=== PATIENT | female | born 1940 | race Caucasian/White ===

== ENCOUNTER 2018-12-04 12:50 | Inpatient (IN) ==
[2018-12-04] MEDS ORDERED: AMIDATE ONE (13:08)
[2018-12-04] MEDS ORDERED: NS 1,000 ML IV ONE (13:20)
[2018-12-04] MEDS ORDERED: VANCOMYCIN 1 GM/NS 1 GM/250 ML IVPB IV ONE (13:21)
[2018-12-04] MEDS ORDERED: ZOSYN 3.375 GM in NS 50 ML IV ONE (13:21)
[2018-12-04] MEDS ORDERED: AMIDATE IV ONE (13:23)
[2018-12-04] MEDS ORDERED: ZEMURON IV ONE (13:24)
--- NOTE | 2018-12-04 13:28 | PROVIDER DOCUMENTATION ---
HPI-General Adult - General Chief Complaint: Altered Mental Status Stated Complaint: UNRESPONSIVE Time Seen by Provider: 12/04/18 12:53 Source: EMS Unable to obtain history due to:: altered Allergies/Adverse Reactions: Patient Allergies Allergy/AdvReac Type Severity Reaction Status Date / Time Unable to Assess Allergy Unverified 12/04/18 13:36 - History of Present Illness -Gen Adult Nature of Presenting Problems: Female of undetermined age, appears to be in her 60s-70s, found unresponsive by the insurance claims assistant after neighbors called, thinking the pt might be . She had last been seen by neighbors 5 days ago. When the insurance claims assistant arrived, the pt was noted to have a pulse and EMS was dispatched. The pt was subsequently transp orted here. She was non-verbal, not responsive to commands, with occasional blinking of the right eye. Location of Pain/Injury: reports: face (decubitus ulcer to left cheek) Review of Systems - Adult - REVIEW OF SYSTEMS - ADULT ROS:: unobtainable per condition Constitutional: reports: other (unobtainable per condition) Eyes: reports: other (unobtainable per condition) Ears, Nose, Mouth & Throat: reports: other (unobtainable per condition) Cardiovascular: reports: other (unobtainable per condition) Respiratory: reports: other (unobtainable per condition) Gastrointestinal: reports: other (unobtainable per condition) Genitourinary: reports: other (unobtainable per condition) Musculoskeletal: reports: other (unobtainable per condition) Integumentary: reports: other (unobtainable per condition) Neurological: reports: other (unobtainable per condition) Psychiatric: reports: other (unobtainable per condition) Past History - Adult - PAST MEDICAL HISTORY-ADULT Review of Records: reports: Nursing Assessment Review Physical Exam-General - PHYSICAL EXAM-ADULT Initial Vital Signs Reviewed: Yes - CONSTITUTIONAL General Appearance: obtunded - EYES Eyes: other (left pupil non-reactive, 2 mm; right pupil minimally reactive 2 mm) - HEAD, EARS, NOSE, MOUTH & THROAT HENMT: other (dry mucous membranes, dried, crusted sputum, thick secretions no marian). negative: normocephalic/atraumatic, moist mucous membranes - NECK Neck: supple - RESPIRATORY Respiratory: lungs clear - CARDIOVASCULAR Cardiovascular: regular rate, rhythm - GASTROINTESTINAL (ABDOMEN) Abdominal Exam: soft, other (bowel sounds hypoactive) - MUSCULOSKELETAL Back Exam: other (no obvious bony deformity noted) Extremity: other (no edema noted, various areas of brusing noted, area of ulceration noted on left knee) - SKIN Integumentary: decubitus (noted on left cheek, lateral and slightly distal to the left eye; some dependent edema noted about the left eye) - NEUROLOGIC Neurologic: other (doesn't respond to commands; occasional blinking of the left eye) - PSYCHIATRIC Psych/Mental Status: other (unresponsive) Progress - PLAN OF CARE/RESULTS Progress/Plan/Lab Results: Orders Category Date Time Status CHEST-1 VIEW [RAD] Stat Exams 12/04/18 13:[address] HEAD/C-SPINE W/O CONTRAST [CT] Stat Exams 12/04/18 13:[address] MAXILLOFACIAL(SINUS) W/O CO [CT] Stat Exams 12/04/18 13:20 Ordered PELVIS [RAD] Stat Exams 12/04/18 13:26 Ordered BLOOD CULTURE [BLDCUL] Stat Lab 12/04/18 13:22 Uncollected CBC WITH ELECTRONIC DIFF [HEME] Stat Lab 12/04/18 13:22 Uncollected CK TOTAL [CHEM] Stat Lab 12/04/18 13:22 Uncollected COMPREHENSIVE METABOLIC PANEL [CHEM] Stat Lab 12/04/18 13:22 Uncollected LACTATE, PLASMA [CHEM] Stat Lab 12/04/18 13:22 Uncollected PROTIME WITH INR [COAG] Stat Lab 12/04/18 13:22 Uncollected PTT [COAG] Stat Lab 12/04/18 13:22 Uncollected TROPONIN T Stat Lab 12/04/18 13:22 Uncollected 0.9% Sodium Chloride Inj [Ns] 1,000 ml Med 12/04/18 13:20 Active IV 999 mls/hr Etomidate [Amidate] Med 12/04/18 13:23 Once 20 mg IV NOW ONE Etomidate [Amidate] Med 12/04/18 13:08 Discontinued 40 mg .ROUTE .STK-MED ONE Piperacillin/Tazobactam [Zosyn] 3.375 gm Med 12/04/18 13:21 Active 0.9% Sodium Chloride Inj [Ns] 50 ml IV NOW Rocuronium Heber [Zemuron] Med 12/04/18 13:24 Once 50 mg IV NOW ONE Vancomycin 1 gm/Ns Med 12/04/18 13:21 Active 1 gm in 250 ml IV NOW Discussion with Cardiology and hospitalist. Pt to be admitted to ICU, Cardiology will consult. Spoke with family at bedside. Result Diagrams: 12/04/18 13:04 12/04/18 13:04 - REASSESSMENT Reassessment #1 Time Reassessed: 15:00 (significant electrolyte derangements, elevated troponin, decreased kidney function; pt will be admitted. No sign of bleeding on head CT. Family updated at bedside. ) - EKG 1 Time of EKG reading by physician:: 14:17 EKG Read and Signed by:: Heather Aquino EKG Interpretation (*Must complete 3 of following elements*): Abnormal Rate: 86 Rhythm: sinus [place]: left ST Wave: non-specific ST changes Comments: peaked T waves, biatrial enlargement, pulm disease pattern, prolonged QT Procedures - INTUBATION Time of Intubation: 13:11 Airway Evaluation: Copious Secretions Mallampati Class: 1 Intubation Method: orotracheal Equipment: ETT, Glidescope Tube Size (cm): 7.5 Pretreated with 100% Oxygen?: Yes Breath Sounds after Intubation: equal ETT Primary Tube Confirmation: Capnometry CO2 Change, Direct Visualization, Chest Rise and Fall, Tube placement verified on XRAY Intubation Complications: no complications Vent Settings: See Respiratory Therapy Notes Departure - Departure Date of Disposition Decision: 12/04/18 Time of Disposition Decision: 15:29 DIAGNOSIS: Hypernatremia, Elevated troponin Altered mental status Qualifiers: Coma depth: [place] coma 3-8 Disposition: ADMITTED INPATIENT 09 Certified Medical Emergency: Emergent Condition: Critical - Critical Care Note This patient required my direct & personal management of CC.: Yes Total Time (mins): 45 Critical Care Statement: This patient required my direct personal management to treat or rule out processes, the absence of which, could potentiallly result in sudden, clinically significant life or limb threatening deterioration. Attestation - Physician/ ASHWIN Attestation Patient care was provided by Advanced Practice Provider:: No The physician spent face to face time with patient:: Yes Advanced Practice Provider documentation review:: Supervising physician onsite and consulted in the evaluation and care of this patient. The physician did have a face to face encounter with the patient.
--- NOTE | 2018-12-04 13:33 | Diag Imaging Result Doc PS360 ---
CHEST-1 VIEW - 12/04/2018 INDICATION: trauma COMPARISON: None FINDINGS: There is an endotracheal tube in good position at about T5. The lungs are clear. Heart size is normal. No pneumothorax or pleural effusion. IMPRESSION: No acute disease. Electronically signed by Yoan Pineda 12/04/2018 1:31 PM
[2018-12-04 13:43] LABS: BASO# 0.03 X1000 (0.0-0.2); BASO% 0.2 % (0.0-0.8); HEMATOCRIT 47.8 % (37.0-47.0); HEMOGLOBIN 16.1 g/dL (12.0-16.0); IMM GRAN# 0.16 X1000 (0.0-0.04); IMM GRAN% 0.9 % (0.0-0.5); LYMPH% 3.8 % (20.5-51.1); MCHC 33.7 g/dL (33-37); MONO# 0.91 X1000 (0.11-0.59); MONO% 4.9 % (1.7-9.3); MPV 12.8 FL (7.4-10.4); NEUT# 16.73 X1000 (1.4-6.5); NEUT% 90.2 % (42.2-75.2); PLT 100 X1000 (130-400); RBC 5.37 XMIL (4.2-5.4); RDW 14.9 % (11.5-14.5); WBC 18.53 X1000 (4.8-10.8)
--- NOTE | 2018-12-04 13:47 | Diag Imaging Result Doc PS360 ---
PELVIS - 12/04/2018 INDICATION: trauma TECHNIQUE: One view COMPARISON: None FINDINGS: There is no fracture or dislocation. There is mild to moderate bilateral hip osteoarthritis. There is moderate degeneration of the sacroiliac joints. There are some mild degenerative calcifications of the iliac wings. IMPRESSION: No acute disease. Electronically signed by Yoan Pineda 12/04/2018 1:45 PM
[2018-12-04 14:08] LABS: INR 1.21; PROTIME 15.5 Seconds (11.0-16.0)
[2018-12-04 14:09] LABS: PTT 23.7 Seconds (22.3-41.8)
[2018-12-04 14:32] LABS: ALB/GLOB RATIO 1.1; ALBUMIN 3.9 g/dL (3.5-5.0); CALCIUM 9.8 mg/dL (8.8-10.2); CREATININE 4.5 mg/dL (0.5-0.9); POTASSIUM 4.3 mmol/L (3.5-5.1); TOTAL BILIRUBIN 1.73 mg/dL (0.20-1.00); TOTAL PROTEIN 7.3 g/dL (6.3-8.3)
--- NOTE | 2018-12-04 14:35 | Diag Imaging Result Doc PS360 ---
CT MAXILLOFACIAL(SINUS) W/O CO - 12/04/2018 INDICATION: Trauma TECHNIQUE: COMPARISON: None FINDINGS: There is an endotracheal tube. There is nasogastric tube at the left side of nose. This is actually coiled in the pharynx, but then does go down into the upper esophagus. No facial bone fracture. There are old side plates of the mandible, mainly at the symphysis and the the symphysis and the The sinuses, mastoids, and middle ears are clear. There is moderate left periorbital soft tissue swelling. Orbital contents are normal. IMPRESSION: 1. Left periorbital soft tissue swelling. No facial bone fractures. 2. The nasogastric tube is slightly coiled in the pharynx, but then does extend into the esophagus. Electronically signed by Yoan Pineda 12/04/2018 2:33 PM
--- NOTE | 2018-12-04 14:48 | Diag Imaging Result Doc PS360 ---
EXAM: CT HEAD/C-SPINE W/O CONTRAST INDICATION: trauma TECHNIQUE: This exam was performed using automated exposure control, adjustment of mA or kV according to patient size, and/or use of iterative reconstruction technique. COMPARISON: None. FINDINGS: Head: There is patchy low attenuation in the periventricular and subcortical white matter suggesting advanced microangiopathy. There is no definite acute infarct given the limited sensitivity of CT versus MRI. There is no discrete intracranial mass, mass effect, or intracranial hemorrhage. There is soft tissue edema involving the frontal and lateral aspect of the scalp on the left. The calvaria is intact. C-spine: There is moderate multilevel degenerative disc disease with loss of disc space height and small marginal osteophyte formation throughout the cervical spine. Otherwise, there is no discrete fracture, subluxation, or intrinsic osseous lesion. And ET tube is in place. The NG tube is coiled multiple times in the pharynx and proximal esophagus. IMPRESSION: 1.Advanced chronic appearing white matter changes but no evidence of acute intracranial pathology. 2.Scalp edema on the left as described. 3.Degenerative changes but no evidence of fracture or other definite acute C-spine injury. 4.Malpositioned NG tube that is coiled within the pharynx and upper esophagus. Electronically signed by Sandor Yao 12/04/2018 2:45 PM
[2018-12-04] MEDS ORDERED: NS 1,000 ML IV SCH ×2 (15:30→16:45)
[2018-12-04 15:34] LABS: CK INDEX 18.6 (0.0-2.5); CK-MB 119.2 ng/mL (0.0-5.0)
[2018-12-04 15:40] LABS: URINE SOURCE CATH
[2018-12-04 15:54] LABS: BILIRUBIN URINE SMALL (NEGATIVE); BLOOD URINE NEGATIVE (NEGATIVE); COLOR YELLOW; GLUCOSE URINE NEGATIVE (NEGATIVE); KETONE URINE NEGATIVE (NEGATIVE); LEUKOCYTES URINE NEGATIVE (NEGATIVE); NITRITE URINE NEGATIVE (NEGATIVE); PROTEIN URINE 50 mg/dL (NEGATIVE); SP GRAVITY URINE 1.018; TURBIDITY URINE CLEAR (CLEAR); UR EPITHELIAL CELLS <10 /HPF (<10); URINE BACTERIA NEGATIVE /HPF; URINE RBC <10 /HPF (<10); URINE WBC <10 /HPF (<10); UROBILINOGEN URINE 2 mg/dL (NORMAL)
--- NOTE | 2018-12-04 16:02 | CARDIOLOGY CONSULTATION ---
DATE: 12/04/2018 HISTORY OF PRESENT ILLNESS: Ms. Zenobia Hinds was found by neighbors to be unresponsive. In the oil bay technician and EMT were there. The patient was noted to have a pulse. She was intubated. She was brought to the emergency room, was intubated. History could not be obtained. From the chart, she has not been in this hospital before. Discussed with her neighbor. They had last seen her 4 or 5 days back. She was otherwise active, had been taking care of her home, and taking care of her pet as well. She was noted to be on the floor when EMT and the oil bay technician where there. She has a large left maxillary area laceration with eschar formation. In addition, on the knees she had similar eschar and laceration and she was noted to be on the floor. As far as the neighbor is concerned, she says that when they had last seen her she was healthy. History could not be obtained from the patient. PAST MEDICAL HISTORY: Hypertension, history of aortic insufficiency, [facility]. MEDICATIONS: We do not have the home medication list. ALLERGIES: Allergies could not be obtained but from our history, which we have in our office from 2008, she is allergic to penicillin. PHYSICAL EXAMINATION: General: Patient is intubated. Vital signs: Blood pressure was 160/85. Cardiovascular system: First and second heart sounds were heard. There was a soft systolic murmur. Respiratory System: Distant breath sounds. Abdomen: Soft. Central nervous system: Could not be assessed. Extremities: She had bilateral edema. She had lacerations on both knees. HEENT: In addition, she had orbital edema bilaterally. In addition, there was a large eschar on the left maxillary region. DIAGNOSTIC STUDIES: Electrocardiogram revealed normal sinus rhythm. T-waves were tall but there was no ST elevation. LABORATORY EXAMINATION: Revealed sodium 160, potassium 4.3, BUN 169, creatinine 4.5, ALT 72, AST 103, bilirubin 1.7. Total CK 642. Troponin abnormal at 1.6. CBC: WBC 18.53, hemoglobin 16.1, hematocrit 47, platelet count of 100,000. IMAGIN. Chest x-ray: No acute disease. 2. Head CT: Advanced chronic appearing white matter changes. NG tube in place. Degenerative cervical disk. No fractures. 3. Hip and pelvis x-ray unremarkable. She has moderate bilateral hip osteoarthritis. ASSESSMENT AND PLAN: 1. Ms Zenobia Hinds is a 78-year-old lady who was found on the floor by neighbors, last seen 4 to 5 days back by neighbors as well. She is intubated. Blood pressure and heart rate are stable. From a cardiac standpoint, she had elevated cardiac enzymes that is probably secondary to dehydration, ATN from rhabdomyolysis. She had elevated kidney enzymes, as well as cardiac enzymes and liver function enzymes were elevated. We will get serial enzymes. 2. We will get an echocardiogram to assess cardiac and valvular function. 3. I am not sure as far as her next of kin is concerned and whether or not she has a Living Will. Neurological status cannot be assessed. Would recommend neurology consultation when appropriate to assess for anoxic brain damage. 4. She has acute tubular necrosis. I would recommend consulting Nephrology, in addition to giving IV fluids. cc: Sebastian Lutz MD
[2018-12-04 16:04] LABS: UR AMPHETAMINES QUAL NONE DETECTED (NONE DETECT); UR BARBITUATES QUAL NONE DETECTED (NONE DETECT); UR BENZODIAZEPIN QUAL NONE DETECTED (NONE DETECT); UR CANNABINOIDS QUAL NONE DETECTED (NONE DETECT); UR COCAINE QUAL NONE DETECTED (NONE DETECT); UR METHADONE QUAL NONE DETECTED (NONE DETECT); UR OPIATES QUAL NONE DETECTED (NONE DETECT); UR OXYCODONE QUAL NONE DETECTED (NONE DETECT); UR PCP QUAL NONE DETECTED (NONE DETECT)
--- NOTE | 2018-12-04 16:23 | EKG Report ---
Test Performed on : 12/04/2018 2:16:54 PM Test Reason : ED. No order in [place] Blood Pressure : / mmHG Vent. Rate : 086 BPM Atrial Rate : 086 BPM P-R Int : 158 ms QRS Dur : 090 ms QT Int : 440 ms P-R-T Axes : 083 -38 073 degrees QTc Int : 526 ms Normal sinus rhythm. Biatrial enlargement Left axis deviation Pulmonary disease pattern Nonspecific ST abnormality Prolonged QT Abnormal ECG No previous ECGs available Unconfirmed Result
--- NOTE | 2018-12-04 16:50 | Diag Imaging Result Doc PS360 ---
EXAM: CHEST-PORTABLE HISTORY: NG TUBE PLACEMENT TECHNIQUE: Chest single view COMPARISON: 1:20 PM FINDINGS: Interval placement of a nasogastric tube. This overlies the esophagus and stomach. Approximately 5 cm is beyond the location of the gastroesophageal junction. Electronically signed by Bob England 12/04/2018 4:47 PM
[2018-12-04] MEDS: HEPARIN SUBQ SCH (17:40)
[2018-12-04] MEDS: MAXIPIME 1 GM in NS 50 ML IV SCH (17:40)
[2018-12-04 17:55] LABS: ALLEN TEST YES; BE -3.9 mmoll (-3.0-3.0); BLOOD TYPE ARTERIAL; HCO3-(ACT) 21.9 mmoll (20.0-26.0); METHB 1.2 % (0.0-1.5); O2(CT) 19.8 mL/dL (15.0-23.0); O2HB 97.6 % (95.0-99.0); PCO2(98.6) 36 mmHg (35-45); PO2(98.6) 299 mmHg (60-100); SAMPLE BLOOD; SAO2 100.2 % (95.0-100.0); SRATE 15 BPM; THB 13.9 g/dL (11.5-17.4); TVOL 450 mL; pH(98.6) 7.37 (7.35-7.45)
[2018-12-04 18:00] LABS: MODALITY VENTILATOR
[2018-12-04] MEDS ORDERED: CUBICIN 500 MG in NS 100 ML IV SCH (18:23)
[2018-12-04 18:27] LABS: ACETAMINOPHEN < 1.2 ug/mL (10-30); SALICYLATES < 3.00 mg/dL (3-10)
[2018-12-04 18:39] LABS: ACETONE SERUM SMALL (NEGATIVE)
[2018-12-04] MEDS ORDERED: MISC. PHARMACY COMMUNICATION SCH (19:00)
[2018-12-04] MEDS ORDERED: SODIUM CHLORIDE 0.9% INJ SCH (19:00)
[2018-12-04 19:28] LABS: ALBUMIN 2.9 g/dL (3.5-5.0); CALCIUM 8.4 mg/dL (8.8-10.2); CREATININE 4.4 mg/dL (0.5-0.9); POTASSIUM 3.5 mmol/L (3.5-5.1); TOTAL BILIRUBIN 1.52 mg/dL (0.20-1.00); TOTAL PROTEIN 5.7 g/dL (6.3-8.3)
[2018-12-04] MEDS: PROTONIX IV SCH (19:42)
[2018-12-04] MEDS ORDERED: D5W 1,000 ML IV SCH (20:00)
[2018-12-04] MEDS: ATIVAN IV PRN (21:08)
[2018-12-04] MEDS: MORPHINE IV PRN (21:08)
[2018-12-04] MEDS: D5 1/2 NS + KCL 20 MEQ 1,000 ML IV SCH (21:14)
[2018-12-04 22:31] LABS: CK INDEX 11.5 (0.0-2.5); CK-MB 53.19 ng/mL (0.0-5.0)
[2018-12-04 22:37] LABS: CALCIUM 8.9 mg/dL (8.8-10.2); CREATININE 4.5 mg/dL (0.5-0.9); POTASSIUM 3.4 mmol/L (3.5-5.1)
--- NOTE | 2018-12-05 00:54 | HISTORY AND PHYSICAL ---
HISTORY OF PRESENT ILLNESS: Ms. Hinds is seen today in the emergency room. She is currently intubated and she is not able to give any history. Part of the history has been obtained from her estranged daughter and neighbors at the bedside, and also review of the ER note. According to the neighbors, Ms. Hinds was last seen probably 4 to 5 days ago, she was walking her dog in the neighborhood, she seemed to be alright. This is theorized to be on , 11/30/2018. Since then she has not been seen, so the neighbor realized that her mail had been piling up, so they called the police to go and check on her. After the police arrived, she was found on the floor with some feces around, so they thought that she probably was so the drop wire stringer was called upon to come and evaluate her. When the drop wire stringer came they found out that she was moving slightly the right upper extremity. So EMS was called and the patient was brought in here. Per documentation it appears Ms. Hinds presented to the emergency room at 12:57, was intubated at 13:11, and we have been consulted for admission. Per the neighbors they are not sure of any medical condition for , they also do not know if Ms. Hinds is on any medications. According to her estranged daughter, Ms. Hinds does not take any prescribed medication because she does not like it, and that she is big onto herbal medicine. Per the cardiology consult it appears that he has a history of hypertension and [facility]. PAST MEDICAL HISTORY: Documented per the records from [facility]. MEDICATIONS: None. ALLERGIES: Unable to obtain; however, the cardiology notes refers that she seems to be allergic to penicillin, documented in the office in 2008. FAMILY HISTORY: We are unable to obtain. SOCIAL HISTORY: We are unable to obtain; however, the daughter and the neighbors seems to think that Ms. Guzman hobbs does not smoke, does not drink alcohol, and does not use any recreational drugs as far as they know. PHYSICAL EXAMINATION: CURRENT VITAL SIGNS: Blood pressure is 160/85, pulse of 98, respiration is 16, temperature is 98.1 degrees on admission, she was saturating about 99% on the Ambu bag. She is currently intubated and saturating about 100%. GENERAL: Ms. Hinds is a 78-year-old female, she is in bed. She is currently intubated, not on any sedation. HEENT: Mucosa is pink and moist. Anicteric. Acyanotic. She is not warm. Head is normocephalic. There is a big scar on the left maxilla region. NECK: Supple. CHEST: Air entry is bilaterally reduced, but there is not any crackles or rhonchi. There is transmitted sounds from the ventilator. CARDIOVASCULAR: Regular rate and rhythm. No murmurs, no rubs, no gallops. GASTROINTESTINAL: Abdomen is soft. Bowel sounds are present. There was no hepatosplenomegaly. EXTREMITIES: No pedal edema. CENTRAL NERVOUS SYSTEM: The patient is intubated, no sedation at this point; however, rocuronium was used as well as etomidate was used for rapid sequential intubation. Her pupils are round and they are reactive to light; however, she does not seem to track and she does not seem to have any threat. She does have corneal reflex when you touch the cornea. The nurses were putting down NG tube and I did not see any reflux. Ms. Hinds will move her upper extremities upon command, but she seems to be decorticating. Ms. Hinds will also move slightly the lower extremities to extreme painful stimulation. LABORATORY DATA: WBC is 18.53, hemoglobin is 16.1, platelet count of 100,000. Sodium is 160, potassium is 4.3, chloride is 114, bicarbonate is 21, anion gap of 25, BUN is 169, creatinine is 4.5. The patient's AST is 103, ALT is 75, alkaline phosphatase is 108, troponin is 1.60. IMAGING STUDIES: A CT scan of the head spine shows no acute intracranial pathology, but there is advanced chronic appearing white matter. There is a scalp edema on the left. A CT scan of the maxillofacial showed a left periorbital soft tissue swelling. No facial bone fracture. A hip pelvic x-ray shows no acute disease. A chest x-ray shows no acute pathology. ASSESSMENT: Ms. Hinds who has not been seen for the past 4 days, was checked on by the police and the drop wire stringer, initially thought that she was ; however, they found that she was moving the upper extremities. She was brought into the emergency department, she has been intubated. She remains unresponsive, but she is moving her extremities some. ASSESSMENT: 1. Comatose with initial unremarkable neuroimaging for any acute intracranial bleed. We will continue with neurologic checks. We will also get Neurology to evaluate Ms. Hinds. We will order an EEG to rule out any ongoing subcortical seizures. 2. Severe hypothermia on presentation with elevated white cell count, presumed sepsis. Cultures have been done. The patient has been started on broad-spectrum IV antibiotics. 3. Severe dehydration with hypernatremia and hyperchloremia. The patient is getting adequate fluid resuscitation. Once she euvolemic clinically then we will switch to half-normal saline or fluid solution that will address the tonicity. 4. Elevated troponins, presumably a type II VT; however, an underlying coronary artery disease cannot be entirely ruled out. Cardiology is on board. 5. Renal failure, etiology and duration is unknown. This is presumed acute and likely ATN. We will try and avoid any nephrotoxin. We will also get urine studies and get Nephrology to evaluate her. 6. High anion gap, metabolic acidosis with metabolic alkalosis. The patient's lactate is normal. We will get acetone and Tylenol as well as some salicylates levels and go from there. No need for bicarb for now. 7. Elevated CK, presumably rhabdomyolysis. We will continue with adequate fluid resuscitation. 8. Respiratory failure. Currently intubated. Pulmonary medicine consulted. PLAN: Ms. Hinds will be admitted to the ICU. She is currently intubated. We will continue with adequate fluid resuscitation. Continue with neurologic checks. We will do q. 4 hourly BMP to follow up on her sodium. We will also continue with the IV antibiotics. The patient is pending consultation from Neurology, Pulmonary Medicine, and Nephrology. She has already been seen by Cardiology. I have discussed Ms Hinds's resuscitation status at this point with the daughter and the neighbors, they know that Ms. Hinds has always wanted not to be resuscitated: means no chest compression and no shocks, but now that she is intubated they do not know what the family would want to do with the ET tube. Ms. Hinds's estranged daughter is going to discuss with the other sister and then they will let us know what will be the care going forward. She is currently DNR level 2, no shocks, no chest compression if her heart should stop. TIME SPENT: Critical time spent is 1 hour. cc: Power May MD [facility]ITALJace
[2018-12-05 04:35] LABS: ALLEN TEST YES; BE -3.8 mmoll (-3.0-3.0); BLOOD TYPE ARTERIAL; METHB 0.8 % (0.0-1.5); O2(CT) 17.4 mL/dL (15.0-23.0); O2HB 97.8 % (95.0-99.0); PCO2(98.6) 39 mmHg (35-45); PO2(98.6) 187 mmHg (60-100); SAMPLE BLOOD; SAO2 99.8 % (95.0-100.0); SRATE 15 BPM; THB 12.4 g/dL (11.5-17.4); TVOL 450 mL; pH(98.6) 7.35 (7.35-7.45)
[2018-12-05 04:36] LABS: MODALITY VENTILATOR
[2018-12-05] MEDS: D5 1/2 NS + KCL 20 MEQ 1,000 ML IV SCH ×2 (04:59→14:47)
[2018-12-05] MEDS: HEPARIN SUBQ SCH ×2 (05:00→16:10)
[2018-12-05] MEDS: MAXIPIME 1 GM in NS 50 ML IV SCH ×2 (05:00→16:10)
[2018-12-05 05:01] LABS: BASO# 0.02 X1000 (0.0-0.2); BASO% 0.1 % (0.0-0.8); EOS# 0.01 X1000 (0.0-0.7); EOS% 0.1 % (0.0-10.0); HEMATOCRIT 37.5 % (37.0-47.0); HEMOGLOBIN 12.2 g/dL (12.0-16.0); IMM GRAN# 0.16 X1000 (0.0-0.04); IMM GRAN% 1.1 % (0.0-0.5); LYMPH# 0.93 X1000 (1.2-3.4); LYMPH% 6.4 % (20.5-51.1); MCH 29.7 PG (27-31); MCHC 32.5 g/dL (33-37); MCV 91.2 FL (81-99); MONO# 0.79 X1000 (0.11-0.59); MONO% 5.4 % (1.7-9.3); MPV 12.7 FL (7.4-10.4); NEUT# 12.64 X1000 (1.4-6.5); NEUT% 86.9 % (42.2-75.2); PLT 76 X1000 (130-400); RBC 4.11 XMIL (4.2-5.4); RDW 14.9 % (11.5-14.5); WBC 14.55 X1000 (4.8-10.8)
[2018-12-05 05:28] LABS: INR 1.45; PROTIME 17.9 Seconds (11.0-16.0)
[2018-12-05 05:30] LABS: ALB/GLOB RATIO 1.4; ALBUMIN 2.8 g/dL (3.5-5.0); CALCIUM 8.1 mg/dL (8.8-10.2); CREATININE 4.8 mg/dL (0.5-0.9); MAGNESIUM 3.2 mg/dL (1.5-2.7); TOTAL BILIRUBIN 0.65 mg/dL (0.20-1.00); TOTAL PROTEIN 4.8 g/dL (6.3-8.3)
[2018-12-05 05:41] LABS: LYMPHS 7 % (21-51); MONO 4 % (1-9); SEGS 89 % (42-75)
[2018-12-05 05:47] LABS: CK INDEX 11.4 (0.0-2.5); CK-MB 32.89 ng/mL (0.0-5.0)
--- NOTE | 2018-12-05 06:37 | Diag Imaging Result Doc PS360 ---
CHEST-PORTABLE - 12/05/2018 INDICATION: respiratory failure COMPARISON: 12/04/2018 FINDINGS: Stable endotracheal tube and nasogastric tube in good position. The lungs are clear. Heart size is normal. No pneumothorax or pleural effusion. IMPRESSION: No acute disease or complication. Electronically signed by Yoan Pineda 12/05/2018 6:34 AM
--- NOTE | 2018-12-05 07:28 | PULMONOLOGY CONSULTATION ---
DATE: 12/04/2018 REQUESTING CLINICIAN: Dr. May. REASON FOR CONSULTATION: Respiratory failure. HISTORY OF PRESENT ILLNESS: Ms. Hinds is a 78-year-old white female with limited history at this facility, and no chronic medications identified on a medication profile, who had not been seen by neighbors for approximately 5 days. The sleep lab technician was called when she was found unresponsive, but a pulse was identified, and EMS was called. She was intubated upon arrival to this hospital. She has multiple decubitus that appear associated with lying in the prone position. She can give no medical history. ALLERGIES: The patient is reportedly allergic to penicillin. She has been evaluated by Cardiology in the past, and it was in their records. PAST SURGICAL HISTORY: Cannot be obtained. FAMILY HISTORY: Cannot be obtained. SOCIAL HISTORY: Cannot be obtained. REVIEW OF SYSTEMS: Cannot be obtained. PHYSICAL EXAMINATION: General: An elderly, white female, who appears her stated age. She has multiple decubitus, including a decubitus on the left cheek, both inferior rib prominences, both knees, and the left great toe. Vital Signs: BP 115/60, heart rate 99, respiratory rate 17, oxygen saturation 99%. HEENT: Pupils are equal and reactive. Oropharynx is clear. Neck: Supple. Chest: Occasional rhonchi bilaterally. Cardiac: S1, S2. Abdomen: Soft. Extremities: Left calf is more prominent than the right calf. IMAGING AND LABORATORY DATA: CT scan of the chest reveals endotracheal tube in good position. Head and cervical spine reveal advanced chronic white matter disease with injury of the left cheek noted. Hip and pelvis x-ray revealed no evidence of acute pathology. White blood count 18.5, hemoglobin 16.1, platelet count 166,000. Arterial blood gas reveals a pH of 7.37, pCO2 of 36, PO2 of 99. Sodium 160, potassium 4.3, chloride 114, bicarbonate 21, BUN 169, creatinine 4.5, glucose 143, creatine kinase 642. Troponin 1.6. Urinalysis is negative for white blood cells and ketone. Acetone level is slightly elevated. Salicylates and acetaminophen are negative. IMPRESSION: A 78-year-old white female who was: 1. Found unresponsive. 2. Has acute hypoxemic respiratory failure. 3. Has acute renal failure. 4. Encephalopathy. 5. Rhabdomyolysis. 6. Multiple decubitus ulcers. 7. Asymmetry of the lower extremities. 8. Acute hypoxemic respiratory failure. PLAN: 1. Recheck sodium now, and adjust fluids accordingly. 2. Continue full ventilatory support. 3. Initiate gastric acid suppression. 4. Continue current heparin dosing pending results of venous Dopplers of the lower extremities. 5. Add penicillin allergy to current drug assessment. 6. Overall prognosis appears poor. cc: Fredy Song MD
[2018-12-05] MEDS ORDERED: NS 2,000 ML MISC PRN (08:06)
--- NOTE | 2018-12-05 08:34 | EKG Report ---
Test Performed on : 12/05/2018 07:45:04 AM Test Reason : unresponsive, cardiac/resp arrest Blood Pressure : / mmHG Vent. Rate : 089 BPM Atrial Rate : 089 BPM P-R Int : 154 ms QRS Dur : 086 ms QT Int : 416 ms P-R-T Axes : 073 -36 064 degrees QTc Int : 506 ms Normal sinus rhythm. Left axis deviation Nonspecific ST abnormality Abnormal ECG When compared with ECG of 04-DEC-2018 14:16, (Unconfirmed) No significant change was found Confirmed by Charles BLOUNT, Josef Andre ([id number]) on 12/06/2018 7:43:41 AM
[2018-12-05 09:24] LABS: URINE SOURCE CATH
[2018-12-05 09:30] LABS: BILIRUBIN URINE NEGATIVE (NEGATIVE); BLOOD URINE TRACE (NEGATIVE); COLOR YELLOW; GLUCOSE URINE NEGATIVE (NEGATIVE); KETONE URINE NEGATIVE (NEGATIVE); LEUKOCYTES URINE SMALL (NEGATIVE); NITRITE URINE NEGATIVE (NEGATIVE); PROTEIN URINE TRACE mg/dL (NEGATIVE); SP GRAVITY URINE 1.018; TURBIDITY URINE HAZY (CLEAR); UROBILINOGEN URINE NORMAL (NORMAL)
[2018-12-05 09:34] LABS: UR EPITHELIAL CELLS <10 /HPF (<10); URINE BACTERIA NEGATIVE /HPF; URINE RBC <10 /HPF (<10); URINE WBC <10 /HPF (<10)
--- NOTE | 2018-12-05 09:43 | PROGRESS NOTE ---
DATE: 12/05/2018 SUBJECTIVE: This patient is still intubated. She grimaces a little bit with pain stimulation, and she is able to move and tries to localize with her left arm when I do some pain stimulation as well. She is moving a little bit on the right side, actually, the right upper extremity when I stimulate her. Her urine output is slow. Nephrology Department following this patient, and dialysis is going to be a treatment option. This will be discussed by Dr. Loving with the family. It looks like this patient was found unresponsive on the floor, and apparently she spent a few days down. OBJECTIVE: Vital Signs: Temperature 98 degrees, pulse 88, respiratory rate 21, blood pressure 103/59, and oxygen saturation 100% on mechanical ventilation. HEENT: Head normocephalic. PERRLA. She does have a necrotic lesion on the left side of her face due to pressure. Neck: Supple. No JVD. Central trachea. Chest: Clear to auscultation. No wheezing. No rales. Abdomen: Soft, nontender, and nondistended. No hepatosplenomegaly. She does have a few redness for possible pressure as well on her abdomen. Extremities: No clubbing. No cyanosis. She does have bilateral knee necrotic lesions due to pressure, and also some ischemic lesion at the level of the left toe and 4th right toe on the right side. Neurological: The patient is on mechanical ventilation. She is grimacing with painful stimulation and moving, and trying to localize with the left arm. She moves little bit the right arm as well but not against gravity. LABORATORY: WBC 14.5, hemoglobin 12.2, hematocrit 37.5, and platelets 76,000. Sodium 154, potassium 4, chloride 117, bicarbonate 20, BUN 116, creatinine 4.8, glucose 265, calcium 8.1, magnesium 3.2, phosphorus 4, AST 59, ALT 47, alkaline phosphatase 74, CK 289, and albumin 2.8. ASSESSMENT AND PLAN: 1. Comatose with no changes in the neuro imaging upon admission. We will continue monitoring this patient in the emergency department. She is grimacing, and she is moving mostly her left upper extremity with pain stimulation. We will continue to monitor. Neurology Department will evaluate this patient. It looks like she spent 4 or 5 days down on the floor unresponsive. 2. Severe hypothermia on presentation with elevated white blood cell count. Now, she does have a positive culture that showed gram-negative rods. In this case, we can call it sepsis. Continue broad-spectrum antibiotics. She is on cefepime and daptomycin. I will continue with same management. 3. Severe dehydration with hypernatremia and hyperchloremia. This seems to be a little bit better. Nephrology on board. 4. Acute kidney injury. I do not have any previous records, but this seems to be acute. Apparently, this patient did not have any history of kidney problems. Neurology Department on board, and probably she will be a candidate for dialysis. 5. Acute hypoxemic respiratory failure. Continue mechanical ventilation. Pulmonary Department on board. 6. Rhabdomyolysis. Continue with IV fluids. 7. Multiple decubitus ulcers, especially her left side of the face, knees, and a couple of toes. We will monitor. Wound Care on board. 8. High anion gap metabolic acidosis, in a patient with kidney injury. We will continue to monitor. 9. Elevated troponins, probably due to demand ischemia. Cardiology on board. CRITICAL CARE TIME: 45 minutes. cc: Caleb Steele MD
[2018-12-05 09:45] LABS: UR PROT RANDOM 18.5 mg/dL; UR SODIUM < 10 mmoll
[2018-12-05 09:47] LABS: URINE CRYSTALS URIC ACID PRESENT
[2018-12-05 10:37] LABS: CK INDEX 8.8 (0.0-2.5); CK-MB 22.72 ng/mL (0.0-5.0)
[2018-12-05] MEDS ORDERED: DOPAMINE 400 MG/D5W 400 MG/500 ML IV.SOLN IV SCH (11:45)
--- NOTE | 2018-12-05 12:00 | NEPHROLOGY CONSULTATION ---
DATE: 12/05/2018 REASON FOR CONSULTATION: Acute kidney injury. HISTORY OF PRESENT ILLNESS: Ms. Hinds is a 78-year-old white female who was found at home by police. She had not been seen for several days, and so the neighbors called the authorities. She was actually initially evaluated by the neighborhood service center director who found the patient was alive, and so EMS and police were activated. She had multiple decubitus ulcers including over the left zygomatic arch. She had apparently been on the floor for an extended period of time. Her initial ER evaluation found the blood pressure 132/88, heart rate 82, respiration 18, and temperature 98.1 degrees. She was hypernatremic, and had acute kidney injury. She was treated with intubation and mechanical ventilation as well as volume expansion. Despite these interventions, her urine output has remained low. Her renal function is not improved. No further history is available. Past Medical History, Family History, Social History etc. are otherwise not obtainable except as listed in the chart. The chart does relate allergy to penicillin, but no home medicines are listed. PHYSICAL EXAMINATION: Vital Signs: Blood pressure 101/56, heart rate 89, respirations 23 and temperature 98 degrees. General: She is an elderly woman and intubated and minimally responsive. She does withdraw to touch. Skin: Warm and dry with multiple eschars on the knees, ribs and left zygomatic arch. There are purple lesions on a toe of each foot that are not clearly pressure eschars. HEENT: Pupils are constricted and equal. Negative doll's eyes. Oropharynx is dry. Neck: Neck veins are not appreciated. Trachea is midline. Heart: PMI is nondisplaced, and not enlarged. Regular rate and rhythm. No gallops, murmurs or rubs. Lungs: Equal excursion. Equal breath sounds. No crackles or wheezes. Abdomen: Soft and nontender. Bowel sounds are diminished. No organomegaly, masses or bruits. Extremities: No edema, clubbing or cyanosis. Distal pulses are not appreciated. Neurologic: As above. IMPRESSION: Acute kidney injury, presumably acute tubular necrosis. Her CK was not significantly elevated. Urine with minimal protein and no blood consistent with a diagnosis of ATN. She has not undergone abdominal imaging so we will do that today. No improvement in BUN and creatinine since admission, and we have no old data. Dialysis would be appropriate to assist with management of her metabolic derangements as we complete our data collection. I will discuss this with the family, and pursue access placement after consent is obtained. cc: Aj Loving MD
--- NOTE | 2018-12-05 13:14 | OPERATIVE NOTE ---
PROCEDURE DATE: 12/05/2018 PROCEDURE PERFORMED: Right femoral vein Vas-Cath with ultrasound guidance. SURGEON: Julio Vale MD. PREOPERATIVE DIAGNOSES: 1. Acute renal failure. 2. Respiratory failure. POSTOPERATIVE DIAGNOSIS: 1. Acute renal failure. 2. Respiratory failure. I have been asked to place a Vas-Cath by Dr. Loving for acute hemodialysis. DESCRIPTION OF PROCEDURE: The femoral vein was chosen due to some grime on her neck. So, the right groin seemed clean. We then prepped and draped it in a sterile fashion. With us appropriately donned with sterile masks, sterile gowns and gloves, we then did an ultrasound identifying the femoral vein; it compressed easily. I anesthetized the skin and an subcutaneous tissue all the way to the femoral vein. We then made a stab incision and accessed the femoral vein without difficulty, passed the guidewire without difficulty. We then dilated the tract sequentially and passed the Trialysis catheter. Blood came back in each lumen spontaneously. We then flushed each lumen with saline. We secured the flange to the skin with nylon contained within the tray. We capped off each access port after flushing it with saline. We then, once again, used the ChloraPrep on the tray to clean around the entrance site. We dried it and then placed a sterile OpSite. She tolerated it well. cc: Julio Vale MD
--- NOTE | 2018-12-05 15:12 | ECHO REPORT ---
ORDER DATE: 12/05/2018 INDICATION: Respiratory failure, renal failure, elevated cardiac enzymes. FINDINGS: 1. The right atrium appears normal in size. 2. Mild tricuspid regurgitation. RV systolic pressure is 31. 3. Limited visualization of the right ventricle but overall appears to be normal in size and function. 4. No significant pulmonic insufficiency. 5. Normal left atrial size at 2.8 cm. 6. No mitral valve prolapse. I do not see any clear evidence of mitral stenosis. Trace mitral regurgitation. 7. The left ventricle appears somewhat small in size with an end-diastolic dimension of 2.7. Moderate left ventricular hypertrophy with a posterior and interventricular septal wall thickness of 1.5 cm each. The LV systolic function appears to be normal with an estimated EF of 65%. 8. Aortic valve is poorly visualized but there does not appear to be any significant degree of stenosis. There is mild aortic insufficiency. 9. Aorta appears normal in visualized segments. 10. No pericardial effusion identified. cc: MD Gladys Clark PA
[2018-12-05 16:36] LABS: CREATININE 1.5 mg/dL (0.5-0.9); POTASSIUM 4.7 mmol/L (3.5-5.1)
[2018-12-05] MEDS: PROTONIX IV SCH (18:06)
--- NOTE | 2018-12-05 19:51 | CONSULTATION ---
DATE OF CONSULTATION: 12/05/2018 REASON FOR CONSULT: Comatose. HISTORY OF PRESENT ILLNESS: This is a 78-year-old female who was found down in her home yesterday and brought to the emergency department. History is from chart review, which is also limited. Apparently the patient was seen around the date of 11/30/2018 and appeared well walking her dog at that time. A neighbor became concerned days later and a welfare check was conducted. The patient was found down in her home unresponsive or poorly responsive. Ultimately, she was brought to the emergency department where she was intubated. She is being treated for acute tubular necrosis and dialysis has been started. Her BUN was 169 with a creatinine of 4.5. She had a sodium of 160. She is septic and growing gram-negative rods. Head CT on arrival did not show acute findings. 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 PAST MEDICAL HISTORY: [facility], consists of hypertension and aortic insufficiency. Otherwise unknown. FAMILY HISTORY: Unknown. SOCIAL HISTORY: Daughter and neighbor reported that they did not believe the patient smokes, drinks alcohol, or uses illicit substances. MEDICATIONS AT HOME: Uncertain. Medications here reviewed in the chart. Includes 1. Lorazepam 1 mg q.4 p.r.n. for agitation. It looks as though she got 1 dose yesterday at 2100. 2. Morphine 4 mg IV q.1 hour p.r.n. with 1 dose yesterday at 2100. 3. She received etomidate and rocuronium presumably for intubation yesterday at 1300. REVIEW OF SYSTEMS: Unobtainable due to patient's status. PHYSICAL EXAM: Vital Signs: Temperature is 97 degrees, blood pressure on arrival 132/88. Today, she has had some readings systolic in the 70s, pulse 106. Neurologic: Ms. Hinds is supine in bed on mechanical ventilation. She is on hemodialysis at this time. No response to voice or light touch. There is occasional subtle spontaneous movement of either lower extremity. There were also subtle movements of the lower extremities to sternal rub. No commands. Pupils are equal, round, and reactive to bright light. Gaze is conjugate. She has roving horizontal eye movements. Corneal reflexes intact on the right, weak on the left. No blink to threat. Face appears symmetric. There is subtle movement of the bilateral upper extremities to noxious stimuli grading 1 to 2/5, appeared symmetric. In the lower extremities, there is movement grading 2 to 3/5 to noxious stimuli, and that appeared symmetric. Reflexes are diminished at the ankles and knees. 1+ at the biceps bilaterally. No clonus. Plantar response was downgoing bilaterally. DIAGNOSTIC DATA: Diagnostics as per above and reviewed. Labs reviewed in the chart. White count 14, platelets 76,000. Sodium 161 on admission, now 154. BUN as high as 183 yesterday, current 166. Creatinine 4.8. Blood glucose 265. Calcium 8.1, magnesium 3.2, AST 76, ALT 53. CK 462. Toxicology: Gram-negative rods in blood culture. Urine culture pending. ASSESSMENT AND PLAN: Global encephalopathy without definite focal features in the setting of multiple toxic metabolic derangements multifactorial with significant contribution from acute kidney injury. Negative CT is reassuring. Would continue correcting the ongoing medical conditions and monitoring clinically for improvement. Limit sedating medications as able. Will order a routine EEG. Thank you for the consultation. cc: Susi Rodriguez MD
--- NOTE | 2018-12-05 20:14 | EEG REPORT ---
DATE: 12/05/2018 REFERRING PHYSICIAN: Power May MD SOCIAL WORKER ASSISTANT: Adina Patten. BACKGROUND INFORMATION/TECHNIQUE: This is a digitally recorded portable routine EEG with video. HISTORY: This is a 78-year-old female patient who was found down at home, poorly responsive. EEG is ordered to detect evidence of seizures. MEDICATIONS: Include p.r.n. lorazepam and morphine. EEG FINDINGS: A posterior dominant alpha rhythm is not seen. The background consists of theta more than delta slowing. Occasional to intermittent diffuse triphasic waves are seen throughout the study. No definite persistent focal slowing. No epileptiform discharges. No definite drowsiness patterns. Stage II sleep is not seen. Hyperventilation is not performed. Photic stimulation does not alter the record. EKG demonstrates regular RR intervals. IMPRESSION AND CLINICAL CORRELATION: 1. Abnormal routine EEG due to moderate generalized slowing with diffuse triphasic waves indicative of a moderate nonspecific encephalopathy. No epileptiform discharges or seizures seen on the current study. This does not rule out an underlying seizure disorder. 2. Generalized slowing is a nonspecific finding that can be seen in processes that diffusely affect the cerebrum, including toxic, metabolic, pharmacologic, post hypoxic and infectious etiologies. Triphasic waves are also a nonspecific finding seen with encephalopathies, more frequently with hepatic or renal derangements. cc: MD Power Welch MD [facility]
--- NOTE | 2018-12-05 22:09 | PULMONOLOGY PROGRESS NOTE ---
DATE: 12/05/2018 SUBJECTIVE: The patient remains poorly responsive. She remains on mechanical ventilation. She has been initiated on hemodialysis. OBJECTIVE: Vital Signs: The patient has been afebrile for the last 24 hours and has had some periods of hypothermia. Blood pressure 94/57, heart rate 77, respiratory rate 18, oxygen saturation 98%. HEENT: Pupils are equal and reactive. No change in cheek wound on the left. Oropharynx appears clear. Neck: Is supple. Chest: Reveals occasional rhonchi bilaterally. Cardiac exam: S1, S2. Abdomen: Is soft. Extremities: Without edema. LABORATORIES: Sodium 154, potassium 4.0, chloride 117, bicarbonate 20, BUN 166, creatinine 4.8. White blood count 14.55, hemoglobin 12.2, platelet count 76,000. Arterial blood gas reveals a pH 7.35, pCO2 of 39, pO2 of 187. Chest x-ray is clear. IMPRESSION: A 78-year-old with 1. Acute hypoxemic respiratory failure. 2. Encephalopathy. 3. Acute renal failure. 4. Rhabdomyolysis. 5. Multiple decubitus ulcers. 6. Asymmetry of the lower extremities (venous Doppler pending). PLAN: 1. Continue hemodialysis. This should correct her electrolyte abnormalities. 2. Continue ventilatory support pending improvement in mental status. 3. Await venous Doppler results. 4. Consider repeat CT scan of the head/brain if she does not have clinical improvement in the next 24 to 48 hours. 5. Overall prognosis is guarded. TIME SPENT IN CRITICAL CARE MANAGEMENT: 35 minutes. cc: Fredy Song MD
[2018-12-05 22:59] LABS: CALCIUM 8.6 mg/dL (8.8-10.2); CREATININE 1.4 mg/dL (0.5-0.9); POTASSIUM 5.5 mmol/L (3.5-5.1)
[2018-12-06] MEDS: HEPARIN SUBQ SCH ×2 (03:44→16:48)
[2018-12-06] MEDS: MAXIPIME 1 GM in NS 50 ML IV SCH ×2 (04:11→16:48)
[2018-12-06 04:41] LABS: ALLEN TEST YES; BE -1.6 mmoll (-3.0-3.0); BLOOD TYPE ARTERIAL; HCO3-(ACT) 23.7 mmoll (20.0-26.0); METHB 0.7 % (0.0-1.5); O2(CT) 17.6 mL/dL (15.0-23.0); O2HB 98.1 % (95.0-99.0); PCO2(98.6) 30 mmHg (35-45); PO2(98.6) 190 mmHg (60-100); SAMPLE BLOOD; SAO2 100.5 % (95.0-100.0); SRATE 12 BPM; THB 12.5 g/dL (11.5-17.4); TVOL 610 mL; pH(98.6) 7.46 (7.35-7.45)
[2018-12-06 04:42] LABS: MODALITY VENTILATOR
[2018-12-06 04:48] LABS: ALB/GLOB RATIO 1.1; ALBUMIN 2.9 g/dL (3.5-5.0); CALCIUM 8.6 mg/dL (8.8-10.2); CREATININE 1.9 mg/dL (0.5-0.9); POTASSIUM 5.7 mmol/L (3.5-5.1); TOTAL BILIRUBIN 0.72 mg/dL (0.20-1.00); TOTAL PROTEIN 5.5 g/dL (6.3-8.3)
[2018-12-06 04:51] LABS: BASO# 0.03 X1000 (0.0-0.2); BASO% 0.2 % (0.0-0.8); EOS# 0.02 X1000 (0.0-0.7); EOS% 0.1 % (0.0-10.0); HEMATOCRIT 37.3 % (37.0-47.0); HEMOGLOBIN 12.2 g/dL (12.0-16.0); IMM GRAN% 2.5 % (0.0-0.5); LYMPH# 1.27 X1000 (1.2-3.4); LYMPH% 7.9 % (20.5-51.1); MCH 29.7 PG (27-31); MCHC 32.7 g/dL (33-37); MCV 90.8 FL (81-99); MPV 11.5 FL (7.4-10.4); NEUT# 13.47 X1000 (1.4-6.5); NEUT% 84.3 % (42.2-75.2); PLT 69 X1000 (130-400); RBC 4.11 XMIL (4.2-5.4); RDW 14.9 % (11.5-14.5); WBC 15.99 X1000 (4.8-10.8)
[2018-12-06 05:09] LABS: LYMPHS 8 % (21-51); MONO 8 % (1-9); SEGS 84 % (42-75)
[2018-12-06 05:19] LABS: CK INDEX 5.6 (0.0-2.5); CK-MB 13.02 ng/mL (0.0-5.0)
--- NOTE | 2018-12-06 06:37 | Diag Imaging Result Doc PS360 ---
CHEST-PORTABLE - 12/06/2018 INDICATION: respiratory failure COMPARISON: 12/05/2018 FINDINGS: Support tubes are stable and in good position. The lungs are clear. Heart size is normal. No pneumothorax or pleural effusion. IMPRESSION: No acute disease or complication. Electronically signed by Yoan Pineda 12/06/2018 6:35 AM
--- NOTE | 2018-12-06 07:51 | PROGRESS NOTE ---
DATE: 12/06/2018 SUBJECTIVE: This patient is still intubated. She grimaces and tries to move mostly her left arm with pain stimulation. She is moving a little bit the right side also, but not that much. She was dialyzed yesterday. Her sodium is within normal limits today. Potassium is high at 5.7. Likely this patient will be dialyzed today again, and that should be decreased with dialysis. I will wait for Nephrology recommendations. On the other hand, I will start feeding this patient with Nepro through the NG tube. I will start with 10 mL and I will increase this slowly up to 20, and tomorrow I will ask the dietitian to see the patient, I will start with a low dose with pain. I will increase it slowly to 20,but the dietitian will evaluate this patient. OBJECTIVE: Vital Signs: Temperature 99.9 degrees, pulse 96, respiratory rate 14, blood pressure 118/65, oxygen saturation 97% on mechanical ventilation. HEENT: Head normocephalic. She has a necrotic lesion due to pressure ulcer on the left side of the face. Neck: Supple. No JVD. Central trachea. Chest: Clear to auscultation. Some crepitus at the bases. Abdomen: Soft, nontender, nondistended. No hepatosplenomegaly. She has diffuse redness for possible pressure as well on her abdomen. Extremities: No clubbing, no cyanosis. Bilaterally pressure ulcers with necrotic lesions, and also ischemic lesion at the level of the left great toe and 4th right toe on the right side. Neurological examination: The patient is on mechanical ventilation. She is grimacing with pain stimulation and moving her left arm trying to localize the pain. She looks like she moves a little bit the right arm as well, but not against gravity. LABORATORY: WBC 15.9, hemoglobin 12.2, hematocrit 37.3, platelets 69. Sodium 142, potassium 5.7, chloride 109, bicarbonate 20. BUN 30, creatinine 1.9, glucose 133, calcium 8.6. AST 50, ALT 44, alkaline phosphatase 80, CK 234, albumin 2.9. ASSESSMENT AND PLAN: 1. Global encephalopathy. This patient is still comatose with no changes in the neuroimaging upon admission. No big changes compared with yesterday. She is still grimacing, moving mostly her left upper extremity with pain stimulation. We will continue to monitor. Neurology Department following this patient closely. 2. Severe hypothermia on presentation with elevated white blood cell count. She has a blood culture that showed gram-negative rods, 2/2. She has been getting cefepime. Urine culture has been negative, so I will continue with cefepime, and I will stop the daptomycin. I will ask Infectious Disease Department to evaluate this patient. 3. Severe dehydration with hypernatremia and hyperchloremia, better. She has been dialyzed. We will continue following the recommendations of Nephrology Department. 4. Acute kidney injury with no recovery, status post dialysis. Continue with same management. 5. Acute hypoxemic respiratory failure. Continue with mechanical ventilation. Pulmonary Department on board. 6. Mild rhabdomyolysis. Continue with the same treatment. 7. Multiple decubitus ulcers, especially left side of the face, knees and a couple of toes. We will monitor. Wound Care on board. 8. High anion gap metabolic acidosis in a patient with kidney injury and sepsis. 9. Sepsis. She presented with hypothermia and also elevated white blood cell count. She has a positive blood culture that showed gram-negative rods. Infectious Disease Department has been consulted. We will continue with the same management for now. 10. Elevated troponins likely due to demand ischemia. Cardiology on board. Overall, this patient did not have a lot of changes compared with yesterday. We started dialysis. She is still moving her left upper extremity with pain stimulation. Neurology Department, Nephrology Department, Pulmonary Department following this patient closely. I have requested an evaluation by Infectious Disease Department since she is bacteremic. CRITICAL CARE TIME: 35 minutes. cc: Caleb Steele MD
--- NOTE | 2018-12-06 08:49 | EKG Report ---
Test Performed on : 12/06/2018 07:19:13 AM Test Reason : unresponsive, cardiac/resp arrest Blood Pressure : / mmHG Vent. Rate : 096 BPM Atrial Rate : 096 BPM P-R Int : 146 ms QRS Dur : 084 ms QT Int : 378 ms P-R-T Axes : 074 -25 069 degrees QTc Int : 477 ms Normal sinus rhythm. Right atrial enlargement Nonspecific ST and T wave abnormality Abnormal ECG When compared with ECG of 05-DEC-2018 07:45, (Unconfirmed) No significant change was found Confirmed by Josef Soto MD ([id number]) on 12/07/2018 7:42:15 PM
[2018-12-06 11:41] LABS: HEPATITIS PROFILE ACUTE SEE COMMENTS
--- NOTE | 2018-12-06 12:20 | INFECTIOUS DISEASE CONSULT REP ---
DATE: 12/06/2018 CONCLUSION: The patient has a gram-negative dolores bacteremia. Her chest x-ray is clear, and her urine culture is negative, and thus it is unlikely that the patient's gram- negative dolores bacteremia originated from a urinary tract infection or pneumonia. I suspect that the patient has an intra- abdominal focus of infection that is causing the gram-negative dolores bacteremia. The patient does have a Trialysis catheter in the right groin, but this was placed after the patient's blood cultures were drawn, and thus the bacteremia is not from the Trialysis catheter. RECOMMENDATIONS: I agree with treating the patient with cefepime pending culture results. I have ordered an abdominal ultrasound to see if there is some pathology in the abdomen that could be responsible for the patient's gram-negative dolores bacteremia. If the ultrasound does not show much, then most likely I will order a CT scan of the abdomen and pelvis. DISCUSSION: The patient was unable to provide a history. The patient's daughter was present. The patient was found down in her home, and was brought to the hospital, and she is in the intensive care unit. The patient's CBC shows a white count of 15,990, hemoglobin 12.2, and platelet count 69,000. Blood gases show a pH of 7.46, a PO2 of 190, and a pCO2 of 30. CK is 234. AST is 50. CT scan of the face shows no sinusitis or middle ear infection. Chest x-ray is clear. Creatinine is 1.9. GFR is 26. As I mentioned above, blood culture is growing gram-negative rods, urine culture is negative. Urinalysis showed some white cells, but no bacteria. PAST MEDICAL HISTORY/REVIEW OF SYSTEMS: This was unable to be obtained from the patient. According to the daughter, the patient was in good health, and she was not having any recent infections. 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 She has had a hysterectomy. PREVIOUS HOSPITALIZATIONS AND OPERATIONS: She has had labor and deliveries, a hysterectomy, and recently had dental implants done. MEDICAL DISEASES: Positive for hypertension and aortic insufficiency. INFECTIOUS DISEASE HISTORY: Positive for pneumonia. Negative for a urinary tract infection. FAMILY HISTORY: Positive for myocardial infarction and stroke. SOCIAL HISTORY: The patient lives in [place]. She is . She lives alone. She has a dog as a pet. She stopped smoking cigarettes about 30 years ago. She does not drink alcoholic beverages or abuse drugs. ALLERGIES: Her chart lists allergy to penicillins. The patient has been receiving cefepime, and is tolerating it well. The exact type of allergy the patient had to the penicillins is unknown. HOME MEDICATIONS: None are listed. According to the daughter, the patient uses holistic medications, but not prescribed medications. PHYSICAL EXAMINATION: Vital Signs: Temperature is 100 degrees, pulse 95, respirations 12, blood pressure 116/73. The patient weighs 141 pounds. She is 5 feet 5 inches tall. General: This is an ill-appearing, elderly female. HEENT: She has an orotracheal and nasogastric tube in place. There is no drainage from the nose or ears. She does have an eschar on her face, which occurred when the patient was found down at her home. Neck: No meningismus. Lungs: Clear to auscultation. Cardiovascular: Heart rate is regular. I did not hear any murmur. Abdomen: Soft and nontender. 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 The eschars are dry. The patient has a Trialysis catheter in the right groin. The site is not red or purulent. Neurologic: The patient does not respond to verbal stimuli. During my exam, she did not move. She did not respond to verbal stimuli either Thank you for the consult. cc: Cullen Izquierdo MD [facility]
--- NOTE | 2018-12-06 12:25 | Diag Imaging Result Doc PS360 ---
EXAM: US ABDOMEN-COMPLETE INDICATION: bacteremia COMPARISON: None. FINDINGS: The gallbladder is distended and there is layering To the gallbladder lumen. No shadowing stones are appreciated. There is no evidence of gallbladder wall thickening or pericholecystic fluid. The common bile duct is normal in diameter. Sonographic Hi's sign was reported to be negative. The liver is grossly unremarkable. Portal venous flow is hepatopetal. The pancreatic tail is obscured. Visualized portion of the pancreas is unremarkable. There is subaneurysmal ectasia of the mid aorta measuring up to 2.4 cm in diameter. The spleen is unremarkable. There is a 3 mm nonobstructing intrarenal stone on the left. The kidneys are grossly unremarkable, otherwise. IMPRESSION: 1.Distended gallbladder with layering sludge but no gallbladder wall thickening is appreciated. 2.Subaneurysmal ectasia of the mid aorta. 3.Likely a punctate nonobstructing intrarenal stone on the left. Electronically signed by Sandor Yao 12/06/2018 12:23 PM
--- NOTE | 2018-12-06 12:31 | PROGRESS NOTE ---
DATE: 12/06/2018 SUBJECTIVE: Dr. Rodriguez saw Ms. Hinds for initial Neurology evaluation yesterday. She presented with evidence of global encephalopathy, no definite focal findings, no evidence of increased intracranial pressure. Sodium was 161, corrected to 142. Initial BUN was 183, brought down to the 20s and 30s now. Elevated liver enzymes were noted and those are improved. EEG showed generalized slowing with triphasic waves, but no definite epileptiform discharge. CT of the head showed old changes with nothing focal or acute. Urine drug screen was all negative. She had initial hypothermia documented. OBJECTIVE: On exam today, she is supine, intubated, minimally responsive. She did not respond to loud noise or to my calling her name. She withdrew each limb from noxious stimulation. She withdrew the right arm a little less briskly than the left. Plantar response is silent bilaterally. She has full lateral eye movement with passive head turning. She did not communicate. I discussed at length with family the recent history and her clinical findings. There is history suggesting baseline cognitive impairment and likely personality change with question of baseline mental illness. Those problems have seemed much more prominent in recent months. In the setting of presumed cognitive impairment, we can anticipate more prominent and protracted encephalopathy with any toxic or metabolic disturbance. Family is aware of need to be patient. Thanks for asking Neurology to see Ms. Hinds. cc: MD KAROLINA Lazo III
[2018-12-06] MEDS: PROTONIX IV SCH (18:05)
--- NOTE | 2018-12-06 19:12 | NEPHROLOGY PROGRESS NOTE ---
DATE: 12/06/2018 SUBJECTIVE: She remains unresponsive, sedated on the ventilator. OBJECTIVE: Vital Signs: Blood pressure 109/76, heart rate 97, respirations 14, afebrile. General: Sedated. Skin: Warm and dry. No changes. Neck: Neck veins are not distended. Heart: Regular with a gallop. Lungs: Equal. No crackles or wheezes. Abdomen: Soft, nontender. Decreased bowel sounds. Extremities: Edema 1+. No clubbing or cyanosis. IMPRESSION AND PLAN: Acute kidney injury. No changes. She tolerated dialysis yesterday. Minimal urine output. Potassium 5.7 today with bicarbonate of 20, anion gap of 13. We will plan SLED again in the morning. cc: Aj Loving MD
--- NOTE | 2018-12-07 00:05 | PULMONOLOGY PROGRESS NOTE ---
DATE: 12/06/2018 SUBJECTIVE: The patient responds to pain. She does not respond to voice. OBJECTIVE: Vital Signs: The patient has been afebrile for the last 24 hours. Blood pressure 118/70, heart rate 99, respiratory rate 15, oxygen saturation 100%. HEENT: Pupils are equal and reactive. Oropharynx appears clear. Neck: Supple. Chest: Reveals good air entry bilaterally without wheezing or rhonchi. Cardiac: S1, S2. Abdomen: Scaphoid and soft. Extremities: Reveal decubitus ulcers on both knees and an area of ischemia on the left great toe. LABORATORIES: Arterial blood gas reveals pH 7.46, pCO2 of 30, PO2 of 190. Sodium 142, potassium 5.5, chloride 109, bicarbonate 20, BUN 30, creatinine 1.9. White blood count 15.99, hemoglobin 12.2, platelet count 69,000. Chest x-ray reveals endotracheal tube and lines to be in good position. Abdominal ultrasound reveals distended gallbladder with a layering sludge but no gallbladder wall thickening, and a small nonobstructing intrarenal stone. Microbiology reveals a gram-negative dolores in 2/2 blood cultures. IMPRESSION: 1. A 78-year-old with acute hypoxemic respiratory failure. 2. Gram-negative bacteremia/septicemia. 3. Encephalopathy. 4. Acute renal failure. 5. Multiple decubitus ulcers. 6. Asymmetry of the lower extremities. PLAN: 1. Continue current antibiotic regimen. 2. Continue full ventilatory support pending improvement in mental status. 3. Await venous Doppler's of the lower extremities. 4. Neurology management per Dr. Barros. 5. Overall prognosis is guarded. I spoke with the family early this morning. They are aware that she is critically ill. TIME SPENT: Critical care management greater than 35 minutes. cc: Fredy Song MD
[2018-12-07 04:35] LABS: ALLEN TEST YES; BE -2.8 mmoll (-3.0-3.0); BLOOD TYPE ARTERIAL; HCO3-(ACT) 22.8 mmoll (20.0-26.0); METHB 0.8 % (0.0-1.5); O2(CT) 16.8 mL/dL (15.0-23.0); O2HB 97.7 % (95.0-99.0); PCO2(98.6) 28 mmHg (35-45); PO2(98.6) 166 mmHg (60-100); SAMPLE BLOOD; SAO2 100.1 % (95.0-100.0); SRATE 12 BPM; TVOL 600 mL; pH(98.6) 7.46 (7.35-7.45)
[2018-12-07 04:38] LABS: MODALITY VENTILATOR
[2018-12-07] MEDS: HEPARIN SUBQ SCH (05:00)
[2018-12-07] MEDS: MAXIPIME 1 GM in NS 50 ML IV SCH (05:00)
[2018-12-07 05:38] LABS: BASO# 0.02 X1000 (0.0-0.2); BASO% 0.1 % (0.0-0.8); EOS# 0.09 X1000 (0.0-0.7); EOS% 0.6 % (0.0-10.0); HEMOGLOBIN 11.5 g/dL (12.0-16.0); IMM GRAN# 0.37 X1000 (0.0-0.04); IMM GRAN% 2.3 % (0.0-0.5); LYMPH# 1.13 X1000 (1.2-3.4); LYMPH% 7.1 % (20.5-51.1); MCH 30.2 PG (27-31); MCHC 32.9 g/dL (33-37); MCV 91.9 FL (81-99); MONO# 0.84 X1000 (0.11-0.59); MONO% 5.3 % (1.7-9.3); MPV 12.7 FL (7.4-10.4); NEUT# 13.38 X1000 (1.4-6.5); NEUT% 84.6 % (42.2-75.2); PLT 85 X1000 (130-400); RBC 3.81 XMIL (4.2-5.4); RDW 14.9 % (11.5-14.5); WBC 15.83 X1000 (4.8-10.8)
[2018-12-07] MEDS ORDERED: NS 2,000 ML MISC PRN (06:04)
[2018-12-07 06:18] LABS: ALB/GLOB RATIO 0.9; ALBUMIN 2.7 g/dL (3.5-5.0); CREATININE 3.1 mg/dL (0.5-0.9); MAGNESIUM 1.9 mg/dL (1.5-2.7); PHOSPHORUS 3.9 mg/dL (2.7-4.5); POTASSIUM 5.1 mmol/L (3.5-5.1); PREALBUMIN 9.9 mg/dL (20-40); TOTAL BILIRUBIN 0.57 mg/dL (0.20-1.00); TOTAL PROTEIN 5.6 g/dL (6.3-8.3)
--- NOTE | 2018-12-07 07:14 | Diag Imaging Result Doc PS360 ---
EXAM: CHEST-PORTABLE INDICATION: respiratory failure TECHNIQUE: One view COMPARISON: 12/06/2018 FINDINGS: Support tubes and lines are in stable positions. The lungs remain grossly clear with no new consolidation. Cardiac silhouette is stable. IMPRESSION: Stable chest. Electronically signed by Sandor Yao 12/07/2018 7:11 AM
--- NOTE | 2018-12-07 07:31 | EKG Report ---
Test Performed on : 12/07/2018 07:13:54 AM Test Reason : unresponsive, cardiac/resp arrest Blood Pressure : / mmHG Vent. Rate : 101 BPM Atrial Rate : 101 BPM P-R Int : 148 ms QRS Dur : 084 ms QT Int : 340 ms P-R-T Axes : 073 -14 078 degrees QTc Int : 440 ms Sinus tachycardia. Nonspecific ST and T wave abnormality Abnormal ECG When compared with ECG of 06-DEC-2018 07:19, (Unconfirmed) No significant change was found Confirmed by Charles BLOUNT, Josef Andre ([id number]) on 12/07/2018 7:43:21 PM
[2018-12-07] MEDS ORDERED: NS 1,000 ML ONE (08:13)
[2018-12-07] MEDS: ROCEPHIN 2 GM in NS 50 ML IV SCH ×2 (09:44→12:45)
--- NOTE | 2018-12-07 10:55 | INFECTIOUS DISEASE PROGRESS NO ---
DATE: 12/07/2018 SUBJECTIVE: The patient has an Escherichia coli bacteremia the exact origin of which is uncertain to me. On ultrasound, she does have a distended gallbladder and I think it is possible that this is where the Escherichia coli originated from. MEDICATIONS: The patient is on cefepime 1 g IV every 12 hours. PHYSICAL EXAMINATION: Vital signs: Temperature is 99.9, pulse 95, respirations 16, blood pressure 126/68. General: This is an ill-appearing elderly female. She is intubated. Head, Eyes, Ears, Nose, and Throat: The patient has an orotracheal and nasogastric tube in place. There is no drainage from the nose or ears. The patient does have an eschar on her face, it is dry and there is some surrounding erythema. Neck: No stiffness. Lungs: Clear to auscultation. Cardiovascular: Regular heart rate. Abdomen: Soft and nontender. Extremities: The patient has dry eschar on both knees. Both eschars have erythema surrounding them. The patient has a Trialysis catheter in the right groin. There is no erythema or drainage coming from the site. Neurologic: The patient is obtunded. She does not respond to verbal stimuli. LAB AND X-RAY: The patient's blood cultures grew Escherichia coli. The patient's blood gases show a pH of 7.46, a pO2 of 166, and a pCO2 of 28. Urine culture is negative. Ultrasound showed a distended gallbladder. Hepatitis panel is nonreactive. CBC shows a white count of 15,830, hemoglobin 11.5, and platelet count 85,000. ASSESSMENT AND PLAN: Patient has an Escherichia coli bacteremia. I think this could have originated from her distended gallbladder. I have discontinued cefepime and placed the patient on Rocephin. I am going to try to get a HIDA scan on this patient. Today, she is having SLED treatment and it will be tomorrow at the earliest if we can get a HIDA scan. If the HIDA scan indicates that there is cholecystitis and possibly the origin of the Escherichia coli bacteremia, I do not think surgery would be an option for that but possibly by putting in a cholecystostomy tube would be an alternative. COMORBIDITIES: The patient was down at home for days. She has gone into renal failure. cc: Cullen Izquierdo MD
--- NOTE | 2018-12-07 12:21 | PROGRESS NOTE ---
DATE: 12/07/2018 LOCATION: ICU bed #1. SUBJECTIVE: There is nothing significantly changed clinically from Neurology standpoint. I discussed briefly with family at the bedside. I agree with plans for conservative management. No new suggestions from Neurology standpoint. Thank you for asking us to see Ms. Hinds. cc: Jaden Barros III, MD
--- NOTE | 2018-12-07 12:32 | NEPHROLOGY PROGRESS NOTE ---
DATE: 12/07/2018 SUBJECTIVE: No change. She is unresponsive, and she is on no sedation. OBJECTIVE: Blood pressure 126/68, heart rate 95, respirations 16, and temperature 99.5 degrees. Intake 1 L. Output 200 mL.General: No acute distress. Skin: Warm and dry. Neck: Neck veins are not distended. Heart: Regular. No gallops. Lungs: Equal and shallow. No crackles. Abdomen: Soft and nontender. Bowel sounds are diminished. Extremities: No edema, clubbing or cyanosis.. IMPRESSION: Acute kidney injury oliguric. We will plan for SLED today. I had a conversation with her daughter today who feels the patient is declining, and also states that she has made clear over time that she did not want any form of life support. I encouraged her to talk to all team members today and, after those conversations are complete if it is their wishes to withdraw, then we will discontinue dialysis. cc: Aj Loving MD [facility]
[2018-12-07] MEDS: TRANSDERM-SCOP TD SCH (15:53)
[2018-12-07] MEDS: ATROPINE 1 % OPHTH SOLN SL PRN (15:54)
--- NOTE | 2018-12-07 20:39 | PROGRESS NOTE ---
DATE: 12/07/2018 SUBJECTIVE: The patient is resting comfortably in bed in no acute distress. She was extubated this afternoon at the request of her family. She is now on comfort measures. OBJECTIVE: Vital Signs: Temperature 99.3 degrees, blood pressure 131/69, heart rate 93, respirations 19, O2 saturation is 100% on nasal cannula. General: This is a chronically ill- appearing, elderly female, lying in bed in no acute distress. Heart: S1, S2 normal. Lungs: Coarse breath sounds bilaterally. Abdomen: Positive bowel sounds. Soft, nontender, nondistended. Extremities: Edema 1+ bilaterally. Neurologic: The patient is unresponsive. ASSESSMENT: 1. Acute hypoxemic respiratory failure. 2. Metabolic encephalopathy. 3. Bacteremia secondary to Escherichia coli. 4. Rhabdomyolysis. 5. Sepsis secondary to E.coli 6. Elevated troponins. 7. Acute kidney injury. 8. Hyperkalemia. PLAN: After discussion with the patient's family, they opted to have the patient made a DNR level 1 and to make her comfort measures. The patient has been transferred to the medical floor and is currently on comfort measures. Palliative Care is following. cc: Sophia Eduardo MD [facility]
--- NOTE | 2018-12-07 22:25 | PULMONOLOGY PROGRESS NOTE ---
DATE: 12/07/2018 SUBJECTIVE: The patient's eyes are slightly open. She responds to pain. She does not respond to voice. She has been placed on a spontaneous breathing trial and does not have increased work of breathing. OBJECTIVE: Maximum temperature in the last 24 hours is 100 degrees. Blood pressure 111/66, heart rate 90, respiratory rate 14, oxygen saturation 100%. HEENT: Pupils are equal. There is a large necrotic ulcer on the left cheek. Oropharynx appears dry. Chest: Occasional rhonchi bilaterally. Cardiac: S1-S2. Abdomen: Soft with diminished bowel sounds. Extremities: Pressure ulcers on both knees and the left great toe. LABORATORY AND DIAGNOSTIC DATA: Chest x-ray is clear. White blood count 15.8, hemoglobin 11.5, platelet count 85,000. Microbiology reveals 2 blood cultures positive for Escherichia coli. IMPRESSION: A 78-year-old who was found unresponsive on the floor. The patient has: 1. Escherichia coli septicemia. 2. Acute hypoxemic respiratory failure. 3. Acute renal failure. 4. Multiple decubitus ulcers. 5. Encephalopathy. DISCUSSION: A 78-year-old with problems outlined above. Clinically, she appears to be improving. Family has indicated that it would be against her wishes to pursue life support such as mechanical ventilation or hemodialysis, and they have requested withdrawal of care. PLAN: 1. Anticipate extubation this morning. She is breathing on her own without increased work of breathing and does have a cough. I suspect that she will tolerate extubation. 2. Discontinue dialysis at the request of the family. 3. Anticipate transfer to the floor with comfort measures. TIME SPENT IN CRITICAL CARE MANAGEMENT: 35 minutes. cc: Fredy Song MD
[2018-12-08] MEDS: ATROPINE 1 % OPHTH SOLN SL PRN ×2 (01:19→19:51)
[2018-12-08] MEDS: MORPHINE IV PRN (04:29)
--- NOTE | 2018-12-08 14:51 | Extremity Venous Study ---
PROCEDURE NAME: Venous U/S Bilateral Legs - 12/05/2018 STUDY: Portable bilateral lower extremity venous imaging. REFERRING PHYSICIAN: Fredy Snog MD INTERPRETING PHYSICIAN: Julio Vale MD NICKER AND BREAKER: Alesha FINDINGS: The patient has leg asymmetry. He has respiratory failure and is on the ventilator. Bilateral lower extremity venous imaging is accomplished. The common femoral, superficial femoral, deep femoral, popliteal, posterior tibial, peroneal, and greater saphenous veins are imaged. All veins are compressible as best as can be seen. There is no obvious filling defects or evidence of DVT. INTERPRETATION: No evidence of deep or superficial venous thrombosis in either lower extremity veins identified. cc: MD Fredy Alcazar MD
--- NOTE | 2018-12-08 19:49 | PROGRESS NOTE ---
DATE: 12/08/2018 SUBJECTIVE: The patient is awake and comfortable. Her family is present at the bedside. No acute events noted overnight. OBJECTIVE: Vital Signs: Temperature 97.9 degrees, blood pressure 158/63, heart rate 90, respirations 17, O2 saturation is 95% on room air. General: This is a chronically ill-appearing, elderly female, lying in bed in no acute distress. Heart: S1, S2 normal. Regular rate and rhythm. Lungs: Equal air entry bilaterally. No wheezing. No rales. Abdomen: Hypoactive bowel sounds. Soft, nontender, nondistended. Extremities: Trace pedal edema. Neurologic: The patient is lethargic. She will open her eyes when her name is called, but does not follow commands. ASSESSMENT: 1. Acute hypoxemic respiratory failure. 2. Metabolic encephalopathy. 3. Sepsis secondary to Escherichia coli. 4. Bacteremia secondary to Escherichia coli. 5. Rhabdomyolysis. 6. Elevated troponin secondary to demand ischemia. 7. Acute kidney injury. 8. Hypokalemia. PLAN: The patient is currently on comfort measures. We will continue to monitor the patient closely. The patient's family members were updated on the patient's medical condition. cc: Sophia Eduardo MD
--- NOTE | 2018-12-09 18:17 | PROGRESS NOTE ---
DATE: 12/09/2018 SUBJECTIVE: The patient is resting comfortably. Her family is present at the bedside. She does open her eyes and communicate with the family. OBJECTIVE: Vital Signs: Temperature 97.8 degrees, blood pressure 158/80, heart rate 102, respirations 21, O2 saturation is 100% on room air. General: This is a chronically ill- appearing, elderly female, lying in bed in no acute distress. Heart: S1, S2 normal. Tachycardic. Lungs: Coarse breath sounds. Abdomen: Positive bowel sounds. Nontender. Extremities: Trace pedal edema. Neurologic: The patient is awake and able to communicate. ASSESSMENT: 1. Acute hypoxemic respiratory failure. 2. Metabolic encephalopathy. 3. Sepsis secondary to Escherichia coli. 4. Bacteremia secondary to Escherichia coli. 5. Rhabdomyolysis. 6. Elevated troponin secondary to demand ischemia. 7. Acute kidney injury, on hemodialysis. 8. Hypokalemia. PLAN: We will continue with comfort measures. The patient's family was updated on the patient's medical condition at the bedside this morning. cc: Sophia Eduardo MD
[2018-12-09] MEDS: ATIVAN IV PRN (22:30)
[2018-12-10] MEDS: ATIVAN IV PRN ×4 (09:02→22:59)
--- NOTE | 2018-12-10 14:44 | PROGRESS NOTE ---
DATE: 12/10/2018 SUBJECTIVE: The patient is awake. She is not as alert as she was yesterday according to family. OBJECTIVE: Vital Signs: Temperature 97.4 degrees, blood pressure 155/92, heart rate 115, respirations 21, O2 saturations 99% on room air. General: This is a chronically ill-appearing elderly female lying in bed in no acute distress. Heart: S1, S2 normal. Tachycardic. Lungs: Equal air entry bilaterally. No wheezing. No rales. Abdomen: Positive bowel sounds. Soft, nontender, nondistended. Extremities: No edema. No cyanosis. Neurologic: The patient is lethargic. ASSESSMENT: 1. Acute hypoxemic respiratory failure. 2. Metabolic encephalopathy. 3. Sepsis secondary to Escherichia coli. 4. Bacteremia secondary to Escherichia coli. 5. Rhabdomyolysis. 6. Elevated troponin secondary to demand skin. 7. Acute kidney injury on hemodialysis. PLAN: We will continue with comfort measures. cc: Sophia Eduardo MD
[2018-12-10] MEDS: TRANSDERM-SCOP TD SCH (16:03)
[2018-12-11] MEDS: MORPHINE IV PRN (09:47)
[2018-12-11] MEDS: ATIVAN IV PRN (09:47)
[2018-12-11] MEDS ORDERED: TYLENOL PR PRN (12:41)
--- NOTE | 2018-12-11 14:39 | PROGRESS NOTE ---
DATE: 12/11/2018 SUBJECTIVE: This patient seems to be lethargic today, family members at the bedside. All their questions were answered. She seems to be comfortable. OBJECTIVE: Vital Signs: Temperature 100.1 degrees, pulse 122, respiratory rate 18, blood pressure 141/78, oxygen saturation 92. HEENT: Head normocephalic, no trauma. PERRLA. Neck: Supple no JVD. Central trachea. Chest: Coarse breath sounds bilaterally. Abdomen: Soft. Positive bowel sounds. Extremities: No clubbing, no cyanosis. Neurological: This patient is lethargic. ASSESSMENT AND PLAN: 1. Acute hypoxemic respiratory failure. 2. Metabolic encephalopathy. 3. Sepsis secondary to Escherichia coli. 4. Bacteremia secondary to Escherichia coli. 5. Rhabdomyolysis. 6. Elevated troponin secondary to demand ischemia. 7. Acute kidney injury on hemodialysis. 8. Severe hyponatremia on presentation with leukocytosis. 9. Electrolyte imbalance. Overall her prognosis is poor, she has been placed DNR and comfort measures only, for now we will continue with the same management. cc: Caleb Steele MD
--- NOTE | 2018-12-12 14:51 | PROGRESS NOTE ---
DATE: 12/12/2018 SUBJECTIVE: The patient is still lethargic. Family members at the bedside. She seems to be comfortable. All their questions were answered. OBJECTIVE: Vital Signs: Temperature 97.8 degrees, pulse 106, respiratory rate 18, blood pressure 134/67, oxygen saturation 97% on room air. HEENT: Head normocephalic. No trauma. Neck: Supple. No JVD. Central trachea. Chest: Coarse breath sounds bilaterally. Abdomen: Soft. Positive bowel sounds. Extremities: No clubbing, no cyanosis, no edema. Neurological Examination: The patient is lethargic. Skin: She has multiple pressure ulcers. ASSESSMENT AND PLAN: 1. Acute hypoxemic respiratory failure. 2. Metabolic encephalopathy. 3. Sepsis secondary to Escherichia coli. 4. Bacteremia secondary to Escherichia coli. 5. Rhabdomyolysis. 6. Elevated troponins secondary to demand ischemia. 7. Acute kidney injury, on hemodialysis. 8. Severe hypernatremia on presentation with leukocytosis. 9. Electrolyte imbalance. 10. Overall, this patient has poor prognosis. She is Do Not Resuscitate and comfort measures only. We will continue with the same management. cc: Caleb Steele MD
[2018-12-13 08:05] VITALS: BP 133/68
--- NOTE | 2018-12-13 11:46 | PROGRESS NOTE ---
DATE: 12/13/2018 SUBJECTIVE: This patient is lethargic. Family members at the bedside. She seems to be comfortable. Vital signs are stable. Probably this patient will be discharged home with hospice. OBJECTIVE: Vital Signs: Temperature 97.5 degrees, pulse 104, respiratory rate 20, blood pressure 133/68, oxygen saturation 99 on room air. HEENT: Head normocephalic. No trauma. Neck: Supple. No JVD. Central trachea. Chest: Coarse breath sounds bilaterally. Abdomen: Soft. Positive bowel sounds. Extremities: No edema, no clubbing, no cyanosis. Neurological: This patient is lethargic. Skin: She has multiple pressure ulcers. ASSESSMENT AND PLAN: 1. Acute hypoxemic respiratory failure. 2. Metabolic encephalopathy. 3. Sepsis secondary to Escherichia coli. 4. Bacteremia secondary to Escherichia coli. 5. Rhabdomyolysis. 6. Elevated troponin secondary to demand ischemia. 7. Acute kidney injury on hemodialysis. 8. Severe hypernatremia on presentation with leukocytosis. 9. Electrolyte imbalance. Overall her prognosis is extremely poor. She has been on comfort measures only, and probably she will be discharged today with hospice. cc: Caleb Steele MD
[2018-12-13] MEDS: TRANSDERM-SCOP TD SCH (15:02)
--- NOTE | 2018-12-14 06:19 | DISCHARGE SUMMARY ---
ADMISSION DATE: 12/04/2018 DISCHARGE DATE: 12/13/2018 DISCHARGE DIAGNOSES: 1. Acute hypoxemic respiratory failure. 2. Metabolic encephalopathy. 3. Sepsis secondary to Escherichia coli. 4. Bacteremia secondary to Escherichia coli. 5. Rhabdomyolysis. 6. Elevated troponin secondary to demand ischemia. 7. Acute kidney injury with no recovery, initially on dialysis. 8. Severe hypernatremia on presentation with leukocytosis. 9. Electrolyte imbalance. 10. This patient has been placed on comfort measures only. HOSPITAL COURSE: The patient has been admitted on 12/04/2018. She is a 78-year-old female that was admitted on 12/04/2018. She was brought to the emergency room, and she was intubated. Her history was taken from her daughter and neighbors at the bedside, and also review of the ER note. According to the neighbors, she was seen probably 4 to 5 days before admission. She was walking her dog in the neighborhood, and she seemed to be a right at that time. Probably, that was around 11/30/2018. Since then, she has not been seen so the neighbor realized that her that mail had been piling up so they called the police to go to check on her. After the police arrived, she was found on the floor with some feces around so they thought that she probably was so the director skills was called to come and evaluate her. When the director skills came, they found out that she was moving slightly the right upper extremity so EMS was called, and the patient was brought here. She was intubated and consulted for admission. We did not know anything about her medical history or medications. According to her daughter, Mrs. Hinds does not take any prescribed medication because she does not like it. Apparently, she has been using some herbal medications. Per Cardiology consult, it appears that she has a history of hypertension and aortic [facility]. She was transferred to the ICU. Cardiology Department was consulted as well as Nephrology Department due to kidney dysfunction. Her kidney basically did not improve even with IV fluids, so we started this patient on dialysis. The Neurology Department was consulted, and they did an EEG that was abnormal due to moderate generalized slowing with diffuse triphasic waves indicating moderate nonspecific encephalopathy, but no epileptiform discharges or seizures seen on the current study. Because of extremity swelling, we did a lower extremity ultrasound that did not show any blood clots. The patient was not improving on a daily basis. Then, after discussing with the family, her poor condition they opted to put this patient DNR and make her comfort measures. She has been kept with medications to keep her comfortable and she is. Vital signs are stable though, but she is lethargic. We discussed the case with the palliative care, and today it has been decided to discharge this patient home with hospice. I had a conversation today with the family, and everything has been set up for them. DISCHARGE EXAMINATION: Vital signs today 8:00 in the morning, pulse 104, respiratory rate 20, blood pressure 133/68 and oxygen saturation 99 percent on room air. HEENT: Head normocephalic. No trauma. PERRLA. Neck: Supple. No JVD. No masses. Central trachea. Chest: Coarse breath sounds bilaterally. Abdomen: Soft. Positive bowel sounds. Extremities: No edema. No clubbing. No cyanosis. Neurological: The patient is lethargic. Skin: She has multiple pressure ulcers especially her knees and left side of her face. DISCHARGE MEDICATIONS: All the medications and management will be provided by hospice care. TIME SPENT: Time discharging this patient 25 minutes. cc: Caleb Steele MD
== END 2018-12-13 18:08 | disposition hospice, home (50) | DRG 871 ==
LOC: ED 12:50 → SUATTDRO 17:02 → ICU 17:02 → 3N 12-07 17:36
PROVIDERS: ATTEND Internal Medicine